=== PATIENT | male | born 1990 | race Native Hawaiian/Other Pacific Islander ===

== ENCOUNTER 2016-11-12 22:06 | Emergency (ER) | payer SELFPAY ==
[~2016-11-12] VITALS: Ht 188 cm; Wt 147.6 kg
[2016-11-12 22:13] VITALS: BP 157/105
--- NOTE | 2016-11-12 22:32 | NUR ---
AMBULATED TO ER BED 4
--- NOTE | 2016-11-12 22:46 | NUR ---
PATIENT PRESENTS TO ED WITH C/O GEN WEAKNESS AND FEELING HOT X 30 MINS . PT DENIES N/V/D; SKIN IS PINK/WARM/DRY; AAOX4 WITH EVEN AND STEADY GAIT; LUNGS CLEAR BL; HR EVEN AND REGULAR; PT DENIES ANY CP, SOB, OR COUGH AT THIS TIME; PATIENT STATES PAIN OF 5/10 AT THIS TIME; VSS; PATIENT POSITIONED FOR COMFORT; HOB ELEVATED; BEDRAILS UP X2; BED DOWN. ER MD MADE AWARE OF PT STATUS.
--- NOTE | 2016-11-12 22:49 | NUR ---
Patient being evaluated by Dr. Bernardo at bedside.
[2016-11-12] MEDS ORDERED: KETOROLAC 60 MG/2 ML VIAL IM ONE (22:55)
[2016-11-12 23:11] VITALS: BP 141/89
== END 2016-11-12 23:11 | disposition home or self-care (01) ==
LOC: MED 22:06
DX: B34.9 Viral infection, unspecified (principal); R03.0 Elevated blood-pressure reading, without diagnosis of hypertension
CPT/HCPCS: 96372; 99283; J1885